=== PATIENT | male | born 1955 | race Caucasian/White ===

== ENCOUNTER 2016-07-20 22:07 | Observation (INO) | payer BC ==
[~2016-07-20] VITALS: Ht 180.3 cm; Wt 95.7 kg
[2016-07-20] MEDS ORDERED: NORVASC 5MG5 MG/TAB PO (22:18)
[2016-07-20] MEDS ORDERED: COLESTID 1GM1 G PO (22:18)
[2016-07-20] MEDS ORDERED: RESTORIL 1515 MG/CAP PO (22:19)
[2016-07-20] MEDS ORDERED: BYSTOLIC10 MG PO (22:20)
[2016-07-20] MEDS ORDERED: ARIMIDEX1 MG PO (22:20)
[2016-07-20 22:35] LABS: BASO # 0.1 (0.0-0.2); BASO % 0.7 % (0.0-2.0); EOS # 0.3 (0.0-0.7); EOS % 2.7 % (0-4.0); GRAN # 5.9 (1.4-6.5); HEMATOCRIT 49.8 % (42.0-52.0); HEMOGLOBIN 17.7 g/dl (13.5-18.0); LYMPH % 30.3 % (20.0-51.0); MEAN CELL VOLUME 93 fl (80.0-100.0); MEAN CORPUSCULAR HEMOGLOBIN 33 pg (27.0-31.0); MEAN CORPUSCULAR HGB CONC 36 g/dl (33.0-37.0); MEAN PLATELET VOLUME 12.4 fl (7.4-10.4); MONO # 0.7 (0.1-0.6); MONO % 6.7 % (1.7-9.3); PLATELET COUNT 131 K/mm3 (130-400); RED BLOOD COUNT 5.34 M/mm3 (4.20-5.60); REDCELL DISTRIBUTION WIDTH-CV 13.6 % (11.5-14.5); WHITE BLOOD COUNT 9.9 K/mm3 (4.8-10.8)
[2016-07-20 22:58] LABS: ADJUSTED CALCIUM 8.4 mg/dL (8.4-10.2); ALANINE AMINOTRANSFERASE 41 U/L (21-72); ALBUMIN 3.8 gm/dL (3.5-5.0); ALKALINE PHOSPHATASE 86 U/L (50-136); ANION GAP 16 mmol/L (7-16); BILIRUBIN,TOTAL 0.7 mg/dL (0.0-1.0); BLOOD UREA NITROGEN 15 mg/dL (9-20); CALCIUM 8.2 mg/dL (8.4-10.2); CARBON DIOXIDE 19 mmol/L (22-30); CHLORIDE 108 mmol/L (98-107); CREATININE, serum 1.51 mg/dL (0.66-1.25); GLUCOSE 129 mg/dL (74-106); LIPASE 281 U/L (23-300); POTASSIUM 3.4 mmol/L (3.4-5.0); SODIUM 143 mmol/L (137-145); TOTAL PROTEIN 6.5 gm/dL (6.4-8.2)
[2016-07-20 23:09] LABS: TROPONIN-I < 0.012 ng/mL (0.000-0.034)
[2016-07-20 23:32] LABS: PH 5 (5-8); URINE APPEARANCE Clear; URINE BILIRUBIN Negative (NEGATIVE); URINE BLOOD Negative (NEGATIVE); URINE COLOR Yellow; URINE GLUCOSE 1+ (NEGATIVE); URINE KETONE Trace (NEGATIVE); URINE UROBILINOGEN Negative (NEGATIVE)
[2016-07-20 23:36] LABS: URINE RBC 0-2 /hpf; URINE WBC 0-2 /hpf
[2016-07-21 00:54] VITALS: BP 136/75; PULSE 90; TEMP 98.6
[2016-07-21] MEDS ORDERED: ARIMIDEX1 MG PO (01:11)
[2016-07-21] MEDS ORDERED: [UNRECOGNIZED DRUG - OTHER] (01:14)
[2016-07-21 05:37] VITALS: BP 133/78; PULSE 53; TEMP 97.6
[2016-07-21 09:18] VITALS: BP 135/87; PULSE 51; TEMP 97.3
== END 2016-07-21 10:34 | disposition left against medical advice (07) ==
LOC: COL.ER 22:07 → SURG 07-21 00:03
PROVIDERS: Emergency Medicine
DX: K56.69 Other intestinal obstruction (principal); I10 Essential (primary) hypertension; G47.00 Insomnia, unspecified; E87.2 Acidosis; K21.9 Gastro-esophageal reflux disease without esophagitis; Z90.49 Acquired absence of other specified parts of digestive tract; Z90.5 Acquired absence of kidney; Z85.528 Personal history of other malignant neoplasm of kidney; Z87.19 Personal history of other diseases of the digestive system; Z82.49 Family history of ischemic heart disease and other diseases of the circulatory system
CPT/HCPCS: 99223-AI; G0378; J1170; J2060; J2405; J7030

== ENCOUNTER 2017-11-17 18:20 | Emergency (ER) | payer OTHER ==
[~2017-11-17] VITALS: Ht 182.9 cm; Wt 95.4 kg
[~2017-11-17 18:20] MED LIST: ARIMIDEX1 MG PO; BYSTOLIC10 MG PO; COLESTID 1GM1 G PO; NORVASC 5MG5 MG/TAB PO; RESTORIL 1515 MG/CAP PO; [UNRECOGNIZED DRUG - OTHER]
[2017-11-17] MEDS ORDERED: DESYREL 50MG50 MG PO (18:51)
[2017-11-17] MEDS ORDERED: DEPO-TESTOS200 MG/M1 IM (18:53)
[2017-11-17 18:55] LABS: BASO % 0.3 % (0.0-2.0); EOS % 0.3 % (0-4.0); GRAN # 10.1 (1.4-6.5); GRAN % 85.5 % (42.2-75.2); HEMATOCRIT 46.6 % (42.0-52.0); HEMOGLOBIN 16.3 g/dl (13.5-18.0); LYMPH # 0.7 (1.2-3.4); LYMPH % 5.9 % (20.0-51.0); MEAN CELL VOLUME 91 fl (80.0-100.0); MEAN CORPUSCULAR HEMOGLOBIN 32 pg (27.0-31.0); MEAN CORPUSCULAR HGB CONC 35 g/dl (33.0-37.0); MEAN PLATELET VOLUME 11.3 fl (7.4-10.4); MONO # 0.9 (0.1-0.6); MONO % 7.5 % (1.7-9.3); PLATELET COUNT 142 K/mm3 (130-400); RED BLOOD COUNT 5.11 M/mm3 (4.20-5.60); REDCELL DISTRIBUTION WIDTH-CV 12.8 % (11.5-14.5)
[2017-11-17 19:06] LABS: ALBUMIN 3.8 gm/dL (3.5-5.0); BILIRUBIN,TOTAL 0.6 mg/dL (0.0-1.0); C-REACTIVE PROTEIN 4.5 mg/dL (0.0-0.9); CALCIUM 8.2 mg/dL (8.4-10.2); CREATININE, serum 1.81 mg/dL (0.66-1.25); POTASSIUM 3.8 mmol/L (3.4-5.0)
[2017-11-17 19:17] LABS: COLLECTION METHOD CLEAN CATCH
[2017-11-17 19:28] LABS: MUCOUS Present /lpf; PH 5 (5-8); SQUAMOUS EPITHELIAL 0-2 /hpf; URINE APPEARANCE Clear; URINE BACTERIA Rare /hpf; URINE BILIRUBIN Negative (NEGATIVE); URINE BLOOD Negative (NEGATIVE); URINE COLOR Yellow; URINE GLUCOSE Negative (NEGATIVE); URINE KETONE Trace (NEGATIVE); URINE LEUKOCYTE ESTERASE Negative (NEGATIVE); URINE NITRATE Negative (NEGATIVE); URINE PROTEIN(semi-quant) 1+ (NEGATIVE); URINE RBC 0-2 /hpf; URINE UROBILINOGEN >=4.0 mg/dL (NEGATIVE)
[2017-11-17 19:47] VITALS: TEMP 100.3
[2017-11-17 20:30] VITALS: BP 107/71; PULSE 85
[2017-11-17] MEDS ORDERED: ZOFRAN 4MG T4 MG/TAB PO (21:08)
[2017-11-20 09:30] LABS: LYME DISEASE ANTIBODIES Negative (Negative)
== END 2017-11-17 21:19 | disposition home or self-care (01) ==
LOC: COL.ER 18:20
PROVIDERS: Emergency Medicine
DX: B34.9 Viral infection, unspecified (principal)
CPT/HCPCS: J1885; J2405; J7030

== ENCOUNTER 2017-11-21 17:15 | Observation (INO) | payer OTHER ==
[~2017-11-21] VITALS: Ht 182.9 cm; Wt 96.0 kg
[~2017-11-21 17:15] MED LIST changes: +DEPO-TESTOS200 MG/M1 IM; +DESYREL 50MG50 MG PO; +ZOFRAN 4MG T4 MG/TAB PO
[2017-11-21 17:36] LABS: BASO % 0.5 % (0.0-2.0); EOS # 0.2 (0.0-0.7); EOS % 3.7 % (0-4.0); GRAN # 3.6 (1.4-6.5); GRAN % 63.3 % (42.2-75.2); HEMATOCRIT 46.9 % (42.0-52.0); HEMOGLOBIN 15.9 g/dl (13.5-18.0); LYMPH # 1.2 (1.2-3.4); MEAN CELL VOLUME 92 fl (80.0-100.0); MEAN CORPUSCULAR HEMOGLOBIN 31 pg (27.0-31.0); MEAN CORPUSCULAR HGB CONC 34 g/dl (33.0-37.0); MONO # 0.6 (0.1-0.6); PLATELET COUNT 162 K/mm3 (130-400); RED BLOOD COUNT 5.11 M/mm3 (4.20-5.60); REDCELL DISTRIBUTION WIDTH-CV 13.2 % (11.5-14.5)
[2017-11-21 18:01] LABS: ALBUMIN 3.5 gm/dL (3.5-5.0); BILIRUBIN,TOTAL 0.4 mg/dL (0.0-1.0); CALCIUM 8.8 mg/dL (8.4-10.2); CREATININE, serum 1.64 mg/dL (0.66-1.25); POTASSIUM 3.9 mmol/L (3.4-5.0); TOTAL PROTEIN 6.8 gm/dL (6.4-8.2)
[2017-11-21 18:11] LABS: COLLECTION METHOD CLEAN CATCH
[2017-11-21] MEDS ORDERED: DEXILANT60 MG PO (18:29)
[2017-11-21 18:31] LABS: MUCOUS Present /lpf; PH 5 (5-8); SQUAMOUS EPITHELIAL None Seen /hpf; URINE APPEARANCE Clear; URINE BACTERIA None Seen /hpf; URINE BILIRUBIN Negative (NEGATIVE); URINE BLOOD Negative (NEGATIVE); URINE COLOR Yellow; URINE GLUCOSE Negative (NEGATIVE); URINE KETONE Negative (NEGATIVE); URINE LEUKOCYTE ESTERASE Negative (NEGATIVE); URINE NITRATE Negative (NEGATIVE); URINE PROTEIN(semi-quant) Negative (NEGATIVE); URINE RBC 0-2 /hpf; URINE UROBILINOGEN Negative (NEGATIVE)
[2017-11-21 19:59] VITALS: BP 127/74; PULSE 76; TEMP 98.1
[2017-11-21 23:03] VITALS: BP 123/61; PULSE 79; TEMP 97.3
[2017-11-22 06:16] VITALS: BP 120/84; PULSE 74; TEMP 98
[2017-11-22 07:49] LABS: BASO % 0.5 % (0.0-2.0); EOS # 0.2 (0.0-0.7); EOS % 3.3 % (0-4.0); GRAN % 65.9 % (42.2-75.2); HEMATOCRIT 44.4 % (42.0-52.0); HEMOGLOBIN 14.9 g/dl (13.5-18.0); LYMPH # 1.2 (1.2-3.4); LYMPH % 18.9 % (20.0-51.0); MEAN CELL VOLUME 93 fl (80.0-100.0); MEAN CORPUSCULAR HEMOGLOBIN 31 pg (27.0-31.0); MEAN CORPUSCULAR HGB CONC 34 g/dl (33.0-37.0); MEAN PLATELET VOLUME 11.4 fl (7.4-10.4); MONO # 0.6 (0.1-0.6); MONO % 10.2 % (1.7-9.3); PLATELET COUNT 123 K/mm3 (130-400); RED BLOOD COUNT 4.79 M/mm3 (4.20-5.60); REDCELL DISTRIBUTION WIDTH-CV 13.2 % (11.5-14.5)
[2017-11-22 08:01] LABS: ALBUMIN 3.2 gm/dL (3.5-5.0); BILIRUBIN,TOTAL 0.5 mg/dL (0.0-1.0); CALCIUM 8.4 mg/dL (8.4-10.2); CREATININE, serum 1.58 mg/dL (0.66-1.25); POTASSIUM 4.2 mmol/L (3.4-5.0); TOTAL PROTEIN 6.4 gm/dL (6.4-8.2)
[2017-11-22] MEDS ORDERED: ZITHROMAX500 M2 PO (10:31)
[2017-11-22 12:16] VITALS: BP 137/73; PULSE 58; TEMP 98.3
[2017-11-22 16:16] VITALS: BP 127/51; PULSE 60; TEMP 98.1
== END 2017-11-22 17:31 | disposition home or self-care (01) ==
LOC: COL.ER 17:15 → MEDICAL 19:05
PROVIDERS: Family Medicine; Nurse Practitioner
DX: K52.89 Other specified noninfective gastroenteritis and colitis (principal); Z90.5 Acquired absence of kidney; E89.6 Postprocedural adrenocortical (-medullary) hypofunction; J98.11 Atelectasis; I12.9 Hypertensive chronic kidney disease with stage 1 through stage 4 chronic kidney disease, or unspecified chronic kidney disease; N18.9 Chronic kidney disease, unspecified; R74.0 Nonspecific elevation of levels of transaminase and lactic acid dehydrogenase [LDH]; Z85.528 Personal history of other malignant neoplasm of kidney; Z90.49 Acquired absence of other specified parts of digestive tract; Z87.891 Personal history of nicotine dependence; Z82.49 Family history of ischemic heart disease and other diseases of the circulatory system; Z80.0 Family history of malignant neoplasm of digestive organs; Z83.3 Family history of diabetes mellitus; Z82.3 Family history of stroke; Z88.2 Allergy status to sulfonamides
CPT/HCPCS: G0378; J0456; J0696; J2405; J2550; J7030; J7050

== ENCOUNTER → 2018-06-17 | Outpatient (CLI) | payer MEDICARE, OTHER ==
[~2018-06-17] MED LIST changes: +DEXILANT60 MG PO; +ZITHROMAX500 M2 PO
== END ==
LOC: COL.RAD 06-13 10:30
DX: I12.9 Hypertensive chronic kidney disease with stage 1 through stage 4 chronic kidney disease, or unspecified chronic kidney disease (principal); N18.3 Chronic kidney disease, stage 3 (moderate); Q60.0 Renal agenesis, unilateral; N28.81 Hypertrophy of kidney; Z90.5 Acquired absence of kidney; N28.1 Cyst of kidney, acquired

== ENCOUNTER → 2020-05-24 | Outpatient (CLI) | payer MEDICARE, OTHER | LOC: COL.RAD 08:15 | DX: N28.1 Cyst of kidney, acquired (principal); Z90.5 Acquired absence of kidney ==

== ENCOUNTER → 2021-07-14 | Outpatient (CLI) | payer MEDICARE, OTHER | LOC: COL.RAD 11:50 | DX: R07.9 Chest pain, unspecified (principal) | CPT/HCPCS: A9540; A9567 ==

== ENCOUNTER → 2022-05-24 | Outpatient (CLI) | payer MEDICARE, OTHER | LOC: COL.RAD 13:01 | DX: J47.9 Bronchiectasis, uncomplicated (principal); I65.23 Occlusion and stenosis of bilateral carotid arteries; K44.9 Diaphragmatic hernia without obstruction or gangrene; K21.9 Gastro-esophageal reflux disease without esophagitis; I71.21 Aneurysm of the ascending aorta, without rupture; Z90.49 Acquired absence of other specified parts of digestive tract ==

== ENCOUNTER → 2022-06-02 | Outpatient (CLI) | payer MEDICARE, OTHER | LOC: COL.RAD 14:08 | DX: I65.09 Occlusion and stenosis of unspecified vertebral artery (principal); I65.29 Occlusion and stenosis of unspecified carotid artery | CPT/HCPCS: Q9967 ==

== ENCOUNTER 2023-02-10 11:51 | Emergency (ER) | payer MEDICARE, OTHER ==
[~2023-02-10] VITALS: Ht 182.9 cm; Wt 93.2 kg
[2023-02-10 11:58] VITALS: TEMP 97.7
[2023-02-10 12:32] LABS: BASO # 0.1 K/mm3 (0.0-0.2); BASO % 0.7 % (0.0-2.0); EOS # 0.2 K/mm3 (0.0-0.7); EOS % 3.2 % (0.0-4.0); GRAN # 4.8 K/mm3 (1.4-6.5); GRAN % 64.9 % (42.2-75.2); HEMATOCRIT 50.5 % (42.0-52.0); LYMPH # 1.5 K/mm3 (1.2-3.4); LYMPH % 20.7 % (20.0-51.0); MEAN CELL VOLUME 91 fl (80.0-100.0); MEAN CORPUSCULAR HEMOGLOBIN 31 pg (27-31); MEAN CORPUSCULAR HGB CONC 34 g/dl (33.0-37.0); MEAN PLATELET VOLUME 11.7 fl (7.4-10.4); MONO # 0.7 K/mm3 (0.1-0.6); MONO % 9.7 % (1.7-9.3); PLATELET COUNT 134 K/mm3 (130-400); RED BLOOD COUNT 5.54 M/mm3 (4.20-5.60); REDCELL DISTRIBUTION WIDTH-CV 15.1 % (11.5-14.5)
[2023-02-10 12:44] LABS: ALANINE AMINOTRANSFERASE 24 U/L (0-55); ALBUMIN 3.5 gm/dL (3.4-4.8); ALKALINE PHOSPHATASE 89 U/L (40-150); ANION GAP 8 mmol/L (7-16); AST,SGOT 21 U/L (5-34); BILIRUBIN,TOTAL 0.7 mg/dL (0.2-1.2); BLOOD UREA NITROGEN 15 mg/dL (8-26); CALCIUM 9.1 mg/dL (8.4-10.2); CARBON DIOXIDE 27 mmol/L (23-31); CHLORIDE 107 mmol/L (98-107); CREATININE, serum 2.39 mg/dL (0.72-1.25); GLUCOSE 97 mg/dL (70-99); POTASSIUM 4.3 mmol/L (3.5-4.5); SODIUM 142 mmol/L (136-145)
[2023-02-10 12:51] LABS: TROPONIN-I < 0.010 ng/mL (0.00-0.033)
[2023-02-10] MEDS ORDERED: AMOXICILLIN 50500 MG PO (13:46)
[2023-02-10 14:44] VITALS: BP 145/86; PULSE 53
== END 2023-02-10 13:55 | disposition home or self-care (01) ==
LOC: COL.ER 11:51
PROVIDERS: Personal Emergency Response Attendant
DX: H66.92 Otitis media, unspecified, left ear (principal); N28.9 Disorder of kidney and ureter, unspecified; Z90.5 Acquired absence of kidney
CPT/HCPCS: J7030